=== PATIENT | male | born 1965 | race Asian ===

== ENCOUNTER 2018-04-27 20:17 | Emergency (ER) | payer MEDICAID ==
[~2018-04-27] VITALS: Ht 170.2 cm; Wt 66.2 kg
[2018-04-27 20:20] VITALS: Ht 170.2 cm; Wt 66.2 kg
[2018-04-27 23:00] LABS: BASOPHIL % 0.2 % (0-2); PLATELET COUNT 367 x10^3mcL (130-400); RED CELL DISTRIBUTION WIDTH 13.3 % (11.5-14.5)
[2018-04-27 23:21] LABS: CARBON DIOXIDE 25.9 mmol/L (21-32); CHLORIDE SERUM 100 mmol/L (98-107); CREATININE SERUM 0.9 mg/dL (0.7-1.3); GFR1 > 60 mL/min; GLUCOSE SERUM 139 mg/dL (74-106); POTASSIUM SERUM 3.7 mmol/L (3.5-5.1); SODIUM SERUM 137 mmol/L (136-145)
[2018-04-27 23:25] LABS: ALBUMIN 3.8 g/dL (3.4-5.0); ALKALINE PHOSPHATASE 76 U/L (46-116); ALT/SGPT 38 U/L (16-63); AST/SGOT 35 U/L (15-37); BILIRUBIN TOTAL 0.33 mg/dL (0.20-1.00); LIPASE 245 IU/L (73-393); TOTAL PROTEIN, SERUM 8.3 g/dL (6.4-8.2)
[2018-04-28 01:17] VITALS: BP 160/95
== END 2018-04-28 01:17 | disposition home or self-care (01) ==
LOC: EDBD 20:17 → ED 20:17
PROVIDERS: Emergency Medicine
DX: I10 Essential (primary) hypertension (principal); F17.210 Nicotine dependence, cigarettes, uncomplicated
CPT/HCPCS: 36415; 85378